=== PATIENT | female | born 1935 | race Caucasian/White ===

== ENCOUNTER 2023-08-28 14:28 | Emergency (ER) | payer MEDICARE, OTHER ==
[~2023-08-28] VITALS: Ht 157.5 cm; Wt 56.8 kg
[2023-08-28 14:47] VITALS: TEMP 97.9
[2023-08-28] MEDS ORDERED: NS 1,000 ML IV ONE (15:00)
[2023-08-28 15:47] LABS: BASO # 0.1 K/mm3 (0.0-0.2); BASO % 0.6 % (0.0-2.0); EOS # 0.2 K/mm3 (0.0-0.7); GRAN # 4.1 K/mm3 (1.4-6.5); GRAN % 45.1 % (42.2-75.2); HEMOGLOBIN 10.3 g/dl (12.5-16.0); LYMPH # 3.9 K/mm3 (1.2-3.4); LYMPH % 43.7 % (20.0-51.0); MEAN CELL VOLUME 76 fl (80.0-100.0); MEAN CORPUSCULAR HEMOGLOBIN 23 pg (27-31); MEAN CORPUSCULAR HGB CONC 31 g/dl (33.0-37.0); MEAN PLATELET VOLUME 11.1 fl (7.4-10.4); MONO # 0.8 K/mm3 (0.1-0.6); MONO % 8.4 % (1.7-9.3); PLATELET COUNT 223 K/mm3 (130-400)
[2023-08-28 15:50] LABS: HEMATOCRIT 33.6 % (37.0-47.0)
[2023-08-28 16:25] LABS: ALBUMIN 3.7 g/dL (3.4-4.8); BILIRUBIN,TOTAL 0.4 mg/dL (0.2-1.2); CALCIUM 8.2 mg/dL (8.4-10.2); CREATININE, serum 0.87 mg/dL (0.57-1.11); POTASSIUM 3.5 mEq/L (3.5-4.5); TOTAL PROTEIN 6.8 g/dl (6.2-8.1)
[2023-08-28 17:17] VITALS: BP 180/78; PULSE 73
== END 2023-08-28 17:17 | disposition home or self-care (01) ==
LOC: COL.ER 14:28
PROVIDERS: Family Medicine
DX: E86.0 Dehydration (principal)
CPT/HCPCS: J7030